=== PATIENT | male | born 1945 | race Asian ===

== ENCOUNTER 2024-05-11 14:08 | Emergency (ER) | payer MEDICARE, MEDICAID, SELFPAY ==
[2024-05-11 14:09] VITALS: BMI 21.9
[2024-05-11 14:34] VITALS: BP 139/70; PULSE 74; RESP 18; TEMP 36.5; O2SAT 96
--- NOTE | 2024-05-11 14:39 | XR_ITS ---
Examination: Abdomen AP single view Technique: AP portable supine abdomen, single view Exam date and time: May 11, 2024 1507 hours INDICATIONS: Onset abdominal pain today FINDINGS: Moderate air and stool throughout the colon Mild small bowel ileus air distended small bowel loops in the left mid abdomen No free air Prominent osteopenia IMPRESSION: Mild small bowel ileus
--- NOTE | 2024-05-11 14:39 | PD.EDRME ---
Rapid Medical Screening Exam RME Arrival date/time: 05/11/24 14:08 78-year-old male with a history of a small bowel obstruction presents to the emergency room with a chief complaint of bright red blood in the stool x 4 days. I have greeted and performed a focused initial assessment of this patient. A comprehensive ED assessment and evaluation of the patient, analysis of all test results, and completion of the medical decision making process will be conducted by additional ED providers. Chief Complaint: Urogenital-Male Time Seen by Provider: 05/11/24 14:27 Vital signs: Vital Signs Temperature 97.7 F 05/11/24 14:34 Pulse Rate 74 05/11/24 14:34 Respiratory Rate 18 05/11/24 14:34 Blood Pressure 139/70 H 05/11/24 14:34 Pulse Oximetry (%) 96 05/11/24 14:34 Oxygen Delivery Method Nasal Cannula 05/11/24 14:34 Vital signs reviewed by provider: Yes
[2024-05-11 15:20] LABS: Basophils # (Auto) 0.1 Thou/mm3 (0.0-0.2); Basophils % (Auto) 1 % (0-2.5); Eosinophils # (Auto) 0.1 Thou/mm3 (0.0-0.5); Eosinophils % (Auto) 1 % (0-10); Hematocrit 46.7 % (41.0-53.0); Hemoglobin 15.5 g/dL (13.5-16.0); Immature Granulocytes % (Auto) 0 % (0-0); Lymphocytes # (Auto) 1.6 Thou/mm3 (1.0-4.8); Lymphocytes % (Auto) 28 % (10-50); Mean Corpuscular HGB Conc 33.2 g/dl (31.0-37.0); Mean Corpuscular Hemoglobin 30.9 pg (25.0-35.0); Mean Corpuscular Volume 93 fL (80-100); Monocytes # (Auto) 0.6 Thou/mm3 (0.0-0.8); Monocytes % (Auto) 10 % (0-12); Neutrophils # (Auto) 3.4 Thou/mm3 (1.8-7.7); Neutrophils % (Auto) 59 % (37-80); Nucleated Red Blood Cell % 0 /100 WBC (0); Platelet Count 246 Thou/mm3 (140-440); RDW Standard Deviation 43.9 fL (35.1-43.9); Red Blood Count 5.02 Miln/mm3 (4.50-5.90); White Blood Count 5.7 Thou/mm3 (3.8-10.6)
[2024-05-11 15:33] LABS: Alanine Aminotransferase 20 U/L (10-49); Albumin, Serum 4.4 gm/dL (3.4-4.8); Albumin/Globulin Ratio 1.7 (1.2-2.2); Alkaline Phosphatase 99 U/L (46-116); Anion Gap 10 (7-16); Aspartate Amino Transferase 19 U/L (0-34); BUN/Creatinine Ratio 8 Ratio (12-20); Bilirubin,Total 0.3 mg/dL (0.3-1.2); Blood Urea Nitrogen 9 mg/dL (9-23); Calcium 9.3 mg/dL (8.3-10.6); Calcium (Corrected) 9.3 mg/dL (8.5-10.1); Carbon Dioxide 23.8 mMol/L (20.0-31.0); Chloride 108 mMol/L (98-107); Creatinine (Component) 1.1 mg/dL (0.6-1.3); Estimated Creatinine Clearance 47.5 mL/min (>60); Globulin 2.6 gm/dL (2.3-3.5); Glucose 79 mg/dL (74-106); Osmolality,Calculated 280 (275-295); Potassium 4.3 mMol/L (3.4-5.1); Sodium 142 mMol/L (136-145); eGFR > 60 See Note
[2024-05-11 15:36] LABS: Partial Thromboplastin Time 26.1 Seconds (22.0-36.0); Prothrombin Time 10.7 Seconds (9.0-12.2)
--- NOTE | 2024-05-11 17:47 | EDNOTE_ITS ---
ED General RME/HPI General Chief complaint: Urogenital-Male Stated complaint: Blood in stool Time Seen by Provider: 05/11/24 14:27 Arrival date/time: 05/11/24 14:08 CC: Rectal bleeding HPI ongoing for the past 4 days without pain denies fever chills shortness chest pain shortness of breath difficulty breathing. Has a history of SBO. No other complaints at this time family member at bedside. RME / HPI RME / HPI narrative: 05/11/24 14:08 78-year-old male with a history of a small bowel obstruction presents to the emergency room with a chief complaint of bright red blood in the stool x 4 days. I have greeted and performed a focused initial assessment of this patient. A comprehensive ED assessment and evaluation of the patient, analysis of all test results, and completion of the medical decision making process will be conducted by additional ED providers. Related Data Previous Rx's ?Medication ?Instructions ?Recorded hydrocodone 5 mg-acetaminophen 325 1 tab PO Q6H #20 ta bs 11/22/22 mg tablet pantoprazole 20 mg tablet,delayed 20 mg PO QDAY #30 ta bs 05/11/24 release (Protonix) Allergies Allergy/AdvReac Type Severity Reaction Status Date / Time No Known Allergies Allergy Verified 01/05/22 02:18 Review of Systems Review of Systems Narrative Review of Systems: GEN: No fever, no chills, no weight loss EYES: No discharge, no visual changes, no pain HEENT: No ear pain, no congestion, no sore throat PULM: No shortness of breath, no cough, no congestion CV: No chest pain, no dyspnea on exertion, no palpitations GI: No nausea, no vomiting, no diarrhea, no pain, no constipation : No frequency, no urgency, no dysuria MUSC/SKEL: No joint pain, no back pain SKIN: No rash PSYCH: No hallucinations, no depression HEME/LYMPH: No easy bleeding or bruising tendencies NEURO: No weakness, no headache Past Medical History Past Medical History NEUROLOGIC: Negative Seizures CARDIAC: Negative Cardiac Disorders or Congestive Heart Failure RESPIRATORY: Negative Chronic Obstructive Pulmonary Disease (COPD) or Asthma GENITOURINARY: Negative Renal Disease ENDOCRINE: Negative Diabetes Mellitus Type 1 or Diabetes Mellitus Type 2 HEMATOLOGIC: Negative Sickle Cell Disease OTHER HISTORY: Negative Blood Transfusions, Blood Transfusion Reaction or Anesthesia Reactions Social History SMOKING STATUS: Never smoker SECOND HAND EXPOSURE: Yes ED Exam Narrative Physical exam: [General: Not in any acute distress Head normocephalic HEENT: Within acceptable limits Neck is supple nontender Chest equal chest rise nontender to palpation Respiratory: Clear to auscultation no wheezes crackles or rubs CV: Rate rhythm is regular no murmurs rubs or clicks Abdomen is flat, soft nontender no masses positive bowel sounds all 4 quadrants GI: Rectum: Anus: No hemorrhoids no fissures no active blood on the anus. Good rectal tone. Vault is empty guaiac of excrement on the rectal wall is heme positive. Back: No CVA tenderness no spinous process tenderness from cervical spine thoracic and lumbar spine Skin: Intact no petechiae rash induration ulceration or crepitus Extremities: Moving all extremity against resistance cap refill less than 2 seconds neurosensory intact Neuro: Awake alert oriented x3 Glascow coma 15 no focal deficits] Course Quality Measures none Orders Category Date Time Status Occult Blood,Stool (Nursing) NEEDED Care 05/11/24 14:37 Active XR abdomen 1V Stat Exams 05/11/24 14:39 Completed CBC Stat Lab 05/11/24 14:42 Completed CMP [Comprehensive Metabolic Panel] Stat Lab 05/11/24 14:42 Completed PT [Prothrombin Time with INR] Stat Lab 05/11/24 14:42 Completed PTT [Partial Thromboplastin Time] Stat Lab 05/11/24 14:42 Completed Type and Screen Stat Lab 05/11/24 14:42 Completed Vital Signs Vital signs: Vital Signs Temperature 97.7 F 05/11/24 14:34 Pulse Rate 74 05/11/24 14:34 Respiratory Rate 18 05/11/24 14:34 Blood Pressure 139/70 H 05/11/24 14:34 Pulse Oximetry (%) 96 05/11/24 14:34 Oxygen Delivery Method Nasal Cannula 05/11/24 14:[address] [facility] Patient data External records reviewed:: [facility] previous records Clinical information provided by:: patient and family Social determinants that could affect healthcare access:: none Patient has the following chronic illnesses:: None How is presenting disease/condition affected by chronic disease/condition?: no chronic disease Evaluation data The following diagnostics were reviewed and interpreted by me:: lab results and radiology exam(s) Lab and/or radiology exams considered but not ordered:: CBC shows no acute leukocytosis anemia thrombocytopenia Coags within acceptable limits CMP shows no electrolyte imbalances renal impairment transaminitis or T. bili elevation , No abdominal x-ray is read by radiologist shows a mild ileus. Interpretation Summary: Patient is guaiac positive but is asymptomatic, stable vital signs and normal H&H at this point the patient is recommended follow-up outpatient. The daughter tells me the patient has an appoint with Dr. Fernandez in 3 days on May 14. I recommend they have an outpatient referral to GI. Otherwise family member was advised that if there is a large amount of rectal bleeding return immediately to the emergency room for reevaluation. Medications Medications considered but not ordered:: None Medication administrations:: None Consultations Consultation(s) initiated? (list below): No Diagnosis Differential Diagnosis ED Complaint MDM: Upper GI bleed lower GI bleed hemorrhoids Most likely diagnosis given after review of the tests above:: Rectal bleeding Admission Indicated Admission indicated?: not indicated Explain why admission is indicated or not indicated:: Stable for outpatient follow-up Admission Request Was there a request for admission?: No Disposition Plan Disposition Plan: Discharge Discharge Attestation Discharge Attestation: The patient and all family members were given an opportunity to ask questions and understood the discharge instructions. Discharge instructions specifically effects, indications for sooner follow up or return to the emergency department, and the expected course of current diagnosis. Patient condition: Stable Medical Decision Making Differential Diagnosis Differential Diagnosis: Upper GI bleed lower GI bleed hemorrhoids Lab Data 05/11/24 14:42 05/11/24 14:42 Labs: Lab Results 05/11/24 Range/Units 14:42 WBC 5.7 (3.8-10.6) Thou/mm3 RBC 5.02 (4.50-5.90) Miln/mm3 Hgb 15.5 (13.5-16.0) g/dL Hct 46.7 (41.0-53.0) % MCV 93 (80-100) fL MCH 30.9 (25.0-35.0) pg MCHC 33.2 (31.0-37.0) g/dl RDW Std Deviation 43.9 (35.1-43.9) fL Plt Count 246 (140-440) Thou/mm3 Neut % (Auto) 59 (37-80) % Lymph % (Auto) 28 (10-50) % [place] % (Auto) 10 (0-12) % Eos % (Auto) 1 (0-10) % Baso % (Auto) 1 (0-2.5) % Neut # (Auto) 3.4 (1.8-7.7) Thou/mm3 Lymph # (Auto) 1.6 (1.0-4.8) Thou/mm3 [place] # (Auto) 0.6 (0.0-0.8) Thou/mm3 Eos # (Auto) 0.1 (0.0-0.5) Thou/mm3 Baso # (Auto) 0.1 (0.0-0.2) Thou/mm3 Immature Gran # (Auto) 0.00 (0.00-0.00) Thou/mm3 Absolute Nucleated RBC 0.00 (0.00-0.00) Thou/mm3 Immature Gran % 0 (0-0) % Nucleated RBC % 0 (0) /100 WBC PT 10.7 (9.0-12.2) Seconds INR 1.0 (0.9-1.3) APTT 26.1 (22.0-36.0) Seconds Sodium 142 (136-145) mMol/L Potassium 4.3 (3.4-5.1) mMol/L Chloride 108 H (98-107) mMol/L Carbon Dioxide 23.8 (20.0-31.0) mMol/L Anion Gap 10 (7-16) BUN 9 (9-23) mg/dL Creatinine 1.1 (0.6-1.3) mg/dL Estim Creat Clear Calc 47.5 L (>60) mL/min eGFR > 60 (60 - ) See Note BUN/Creatinine Ratio 8 L (12-20) Ratio Glucose 79 (74-106) mg/dL Calculated Osmolality 280 (275-295) Calcium 9.3 (8.3-10.6) mg/dL Corrected Calcium 9.3 (8.5-10.1) mg/dL Total Bilirubin 0.3 (0.3-1.2) mg/dL AST 19 (0-34) U/L ALT 20 (10-49) U/L Alkaline Phosphatase 99 (46-116) U/L Total Protein 7.0 (5.7-8.2) gm/dL Albumin 4.4 (3.4-4.8) gm/dL Globulin 2.6 (2.3-3.5) gm/dL Albumin/Globulin Ratio 1.7 (1.2-2.2) Blood Type B Positive Antibody Screen NEGATIVE Blood Bank Wristband ID Yes Discharge Plan Plan Patient Disposition: HOME (Self Care) Patient condition on transfer: Stable Prescriptions/Referrals Prescriptions/Med Rec: New pantoprazole [Protonix] 20 mg tablet,delayed release (DR/EC) 20 mg PO QDAY Qty: 30 0RF No Action hydrocodone-acetaminophen 5-325 mg tablet 1 tab PO Q6H MDD 4 Qty: 20 0RF Referrals: David Fernandez MD [Primary Care Provider] - In 1 week Francisca Chambers MD [Physician] - In 1 week Problem List Clinical Impression: Rectal bleeding Patient/Caregiver Discharge Instructions Education Materials: Understanding Rectal Bleeding Additional Instructions: You may continue to bleed from the rectum however your blood count is normal please follow-up with your primary care provider seek a referral to a GI specialist for endoscopy. Print Language: Croatian Stand Alone Forms: Rosario Award Info., Patient Portal Info Letter, Work/School Release PA/[employer] Supervising Physician PA/[employer] Supervising Physician: Syl Walton ENP
== END 2024-05-11 19:06 | disposition home or self-care (01) ==
PROVIDERS: Nurse Practitioner Family; Emergency Provider Emergency Medicine; PCP Family Medicine
DX: K92.1 Melena (principal)
CPT/HCPCS: 36415; 74018; 80053; 85025; 85610; 85730; 86850; 86900; 86901; 99283